=== PATIENT | female | born 1945 | race Caucasian/White ===

== ENCOUNTER 2018-04-26 20:04 | Emergency (ER) | payer MEDICARE, OTHER ==
[~2018-04-26] VITALS: Ht 162.6 cm; Wt 92.0 kg
[2018-04-26 20:17] VITALS: BP 161/61
[2018-04-26] MEDS: IBUPROFEN 400 MG TABLET. PO ONE (21:01)
--- NOTE | 2018-04-26 23:45 | RAD ---
Three-view right shoulder radiographs to include AP and lateral radiographs of the right humerus 04/26/2018 CLINICAL HISTORY: Fall with injury to the right shoulder and right humerus. AP internal and external rotation and transscapular digital radiographs of the right shoulder were obtained. AP and lateral digital radiographs of the right humerus were obtained. No fracture or dislocation of the right shoulder is seen. No fracture or dislocation of the right humerus is noted. Moderate degenerative changes are seen involving the right AC joint and right glenohumeral joint. IMPRESSION: No fracture or dislocation of the right shoulder or right humerus is seen. Electronically signed by: Kenny Rea MD (04/26/2018 11:42 PM) [facility]
--- NOTE | 2018-04-26 23:47 | RAD ---
AP portable chest radiograph 04/26/2018 Clinical History: Fall with chest injury. An AP erect portable digital radiograph of the chest was obtained. No previous studies are available for comparison. The cardiac silhouette is borderline enlarged. The thoracic aorta is tortuous. Atherosclerotic calcification of the thoracic aorta is seen. No acute pulmonary infiltrate is noted. No pneumothorax or pleural effusion is seen. Degenerative changes are seen involving the thoracic spine. The osseous structures are grossly intact. IMPRESSION: No acute abnormality is seen. Electronically signed by: Kenny Rea MD (04/26/2018 11:44 PM) [facility]
--- NOTE | 2018-04-27 05:49 | ED.ADGEN ---
Past History Past Medical History: Dementia, High Cholesterol, Other Past Surgical History: Knee Replacement, Lumbar Laminectomy Alcohol Use: None Drug Use: None Adult General Chief Complaint Chief Complaint Right arm pain HPI HPI Patient is a [72-year-old female with history of dementia who had witnessed fall while using a walker. Patient walker looked and got out in front of her causing patient to land on right elbow. Patient did not hit her head. No complaints of headache loss of consciousness. Patient is not on a blood thinner. She's been ambulatory since the accident. History is obtained from her who is present at bedside.[] Review of Systems Review of Systems Symptoms as per history of present illness All other systems were reviewed and found to be within normal limits, except as documented in this note. Current Medications Current Medications Current Medications Medications (Trade) Dose Ordered Sig/Herman Start Time Stop Time Status Last Admin Dose Admin Ibuprofen (Motrin) 400 mg 1X ONCE 04/26/18 21:30 04/26/18 21:31 DC 04/26/18 21:01 400 MG Allergies Allergies Allergies Coded Allergies Type Severity Reaction Last Updated Verified latex Allergy Unknown 04/26/18 Yes Physical Exam Physical Exam Constitutional: Well developed, well nourished, no acute distress, non-toxic appearance. [] HENT: Normocephalic, atraumatic, bilateral external ears normal, oropharynx moist, no oral exudates, nose normal. [] Eyes: PERRLA, EOMI, conjunctiva normal, no discharge. [] Neck: Normal range of motion, no line tenderness, supple, no stridor. [] Cardiovascular:Heart rate regular rhythm, no murmur [] Lungs & Thorax: Bilateral breath sounds clear to auscultation, no chest wall crepitus or subcutaneous emphysema. [] Abdomen: Bowel sounds normal, soft, no tenderness, no masses, no pulsatile masses. [] Skin: Warm, dry, no erythema, no rash. [] Back: No tenderness, no CVA tenderness. [] Extremities: Upper extremity's, no deformity swelling bruising, abrasions, no joint pain, tenderness to palpation.. [] Neurologic: Alert and oriented X 3, normal motor function, normal sensory function, no focal deficits noted. [] Psychologic: Affect normal, judgement normal, mood normal. [] Current Patient Data Vital Signs Vital Signs Date Time Temp Pulse Resp B/P (MAP) Pulse Ox O2 Delivery O2 Flow Rate FiO2 04/26/18 20:17 98.2 72 18 96 Room Air EKG EKG [] Radiology/Procedures Radiology/Procedures [Chest x-ray/right shoulder/right arm: No obvious displaced fracture on preliminary ED review.] Course & Med Decision Making Course & Med Decision Making Pertinent Labs and Imaging studies reviewed. (See chart for details) [Supportive care] Final Impression Final Impression [#1 right arm injury] Janette Disclaimer Dragon Disclaimer This electronic medical record was generated, in whole or in part, using a voice recognition dictation system. ANI PEREZ DO Apr 27, 2018 05:49
== END 2018-04-26 21:08 | disposition home or self-care (01) ==
LOC: ER 20:04
DX: S49.91XA Unspecified injury of right shoulder and upper arm, initial encounter (principal); E78.00 Pure hypercholesterolemia, unspecified; F03.90 Unspecified dementia, unspecified severity, without behavioral disturbance, psychotic disturbance, mood disturbance, and anxiety; Z91.040 Latex allergy status; W19.XXXA Unspecified fall, initial encounter; Y93.89 Activity, other specified; Y92.89 Other specified places as the place of occurrence of the external cause; Y99.8 Other external cause status
CPT/HCPCS: 71045; 73030; 73060; 99284

== ENCOUNTER → 2018-04-27 | Outpatient (CLI) | payer MEDICARE, OTHER ==
[2018-04-26 20:17] VITALS: BP 161/61
== END | disposition home or self-care (01) ==
LOC: SURG 12:45
PROVIDERS: ATTEND Anesthesiology Pain Medicine
DX: M47.26 Other spondylosis with radiculopathy, lumbar region (principal); M25.551 Pain in right hip; M25.552 Pain in left hip; G89.4 Chronic pain syndrome; E78.00 Pure hypercholesterolemia, unspecified; Z86.69 Personal history of other diseases of the nervous system and sense organs
CPT/HCPCS: 99204

== ENCOUNTER → 2018-06-09 | Outpatient (CLI) | payer MEDICARE, OTHER | END | disposition home or self-care (01) | LOC: SURG 12:19 | PROVIDERS: ATTEND Anesthesiology Pain Medicine | DX: M47.816 Spondylosis without myelopathy or radiculopathy, lumbar region (principal); F03.90 Unspecified dementia, unspecified severity, without behavioral disturbance, psychotic disturbance, mood disturbance, and anxiety; M19.90 Unspecified osteoarthritis, unspecified site; G89.29 Other chronic pain; E78.00 Pure hypercholesterolemia, unspecified; Z79.899 Other long term (current) drug therapy | CPT/HCPCS: 99214 ==